=== PATIENT | female | born 1975 | race Caucasian/White ===

== ENCOUNTER 2018-12-24 10:24 | Day surgery (SDC) | payer OTHER ==
[~2018-12-24 10:24] MED LIST: DICLOFENAC POTA50 MG PO; TIZANIDINE HCL4 MG PO
== END 2018-12-24 15:45 | disposition home or self-care (01) ==
LOC: AMB-ENDOS 10:24
DX: K59.09 Other constipation (principal); R19.4 Change in bowel habit

== ENCOUNTER 2019-06-03 09:15 | Inpatient (IN) | payer OTHER ==
[~2019-06-03] VITALS: Ht 170.2 cm; Wt 80.7 kg
[2019-06-15] MEDS ORDERED: COLACE100 MG PO (11:46)
[2019-06-15] MEDS ORDERED: Tylenol #3 PO (11:46)
== END 2019-06-15 12:50 | disposition home or self-care (01) | DRG 743 ==
LOC: O/R 09:15 → SURG-SUITE 06-12 05:16 → O/R 06-12 05:16 → SURH 06-12 09:15 → SURG-SUITE 06-12 12:49 → SURH 06-12 20:30 → SURG-SUITE 06-15 12:50
PROVIDERS: ADMIT Obstetrics & Gynecology
PROC: 0USG0ZZ Reposition Vagina, Open Approach (ICD-10-PCS; 2019-06-12)
PROC: 0UT98ZZ Resection of Uterus, Via Natural or Artificial Opening Endoscopic (ICD-10-PCS; principal; 2019-06-12 20:30)
PROC: 0JQC0ZZ Repair Pelvic Region Subcutaneous Tissue and Fascia, Open Approach (ICD-10-PCS; 2019-06-12 20:30)
DX: D25.0 Submucous leiomyoma of uterus (principal); N81.11 Cystocele, midline; N72 Inflammatory disease of cervix uteri; N81.6 Rectocele; M54.2 Cervicalgia; M54.5 Low back pain

== ENCOUNTER 2019-06-27 12:14 | Outpatient (CLI) | payer OTHER ==
[~2019-06-27 12:14] MED LIST changes: +COLACE100 MG PO; +Tylenol #3 PO
== END 2019-06-27 15:55 | disposition home or self-care (01) ==
LOC: TOM 12:14
DX: R10.2 Pelvic and perineal pain (principal)

== ENCOUNTER 2019-06-27 14:32 | Inpatient (IN) | payer OTHER ==
[2019-06-30] MEDS ORDERED: ACETAMINOPHEN-1 EAC2 (07:51)
[2019-06-30] MEDS ORDERED: COLACE100 MG PO (07:54)
[2019-07-11] MEDS ORDERED: SENOKOT8.6 M1 PO (09:14)
[2019-07-11] MEDS ORDERED: Anaprox DS PO (09:14)
[2019-07-11] MEDS ORDERED: FLAGYL500MG PO (09:14)
== END 2019-07-11 09:33 | disposition home or self-care (01) | DRG 757 ==
LOC: SURG-SUITE 14:32
PROVIDERS: ADMIT Obstetrics & Gynecology
PROC: BW21ZZZ Computerized Tomography (CT Scan) of Abdomen and Pelvis (ICD-10-PCS; 2019-06-27)
PROC: BW21Y0Z Computerized Tomography (CT Scan) of Abdomen and Pelvis using Other Contrast, Unenhanced and Enhanced (ICD-10-PCS; 2019-07-02)
PROC: 0W9J30Z Drainage of Pelvic Cavity with Drainage Device, Percutaneous Approach (ICD-10-PCS; principal; 2019-07-04)
PROC: BW4GZZZ Ultrasonography of Pelvic Region (ICD-10-PCS; 2019-07-04)
DX: N73.0 Acute parametritis and pelvic cellulitis (principal); K65.1 Peritoneal abscess; R31.0 Gross hematuria; N20.0 Calculus of kidney; N81.11 Cystocele, midline; M51.37 Other intervertebral disc degeneration, lumbosacral region; R19.09 Other intra-abdominal and pelvic swelling, mass and lump